=== PATIENT | female | born 1960 | race Caucasian/White ===

== ENCOUNTER 2017-06-18 23:54 | Observation (INO) ==
[2017-06-19] MEDS ORDERED: ZOFRAN IM ONE (01:41)
[2017-06-19] MEDS ORDERED: NS 1,000 ML IV ONE (02:11)
[2017-06-19 02:15] LABS: BASO% 0.2 % (0.0-0.8); EOS# 0.02 X1000 (0.0-0.7); EOS% 0.1 % (0.0-10.0); HEMATOCRIT 40.5 % (37.0-47.0); HEMOGLOBIN 14.1 g/dL (12.0-16.0); IMM GRAN# 0.35 X1000 (0.0-0.04); IMM GRAN% 1.6 % (0.0-0.5); LYMPH# 3.88 X1000 (1.2-3.4); LYMPH% 17.2 % (20.5-51.1); MANUAL DIFF NEEDED? NO; MCH 31.8 PG (27-31); MCHC 34.8 g/dL (33-37); MCV 91.2 FL (81-99); MONO# 1.07 X1000 (0.11-0.59); MONO% 4.7 % (1.7-9.3); NEUT% 76.2 % (42.2-75.2); PLT 421 X1000 (130-400); RBC 4.44 XMIL (4.2-5.4)
[2017-06-19 02:19] LABS: INR 0.97; PROTIME 10.2 Seconds (9.2-11.7)
[2017-06-19] MEDS ORDERED: FENTANYL ONE (02:31)
[2017-06-19] MEDS ORDERED: DIPRIVAN 1% ONE (02:32)
[2017-06-19] MEDS ORDERED: REGLAN ONE ×2 (02:53)
[2017-06-19] MEDS ORDERED: ZOFRAN ONE ×2 (02:54)
[2017-06-19] MEDS ORDERED: PEPCID ONE ×2 (02:55)
[2017-06-19] MEDS ORDERED: D5 1/2 NS + KCL 20 MEQ 1,000 ML ONE ×2 (03:43)
[2017-06-19] MEDS ORDERED: DILAUDID ONE (03:51)
[2017-06-19] MEDS ORDERED: QUELICIN (DOSE) ONE (03:58)
[2017-06-19] MEDS ORDERED: XYLOCAINE-MPF 2% ONE (03:58)
[2017-06-19] MEDS ORDERED: ZOFRAN IV PRN (04:24)
[2017-06-19] MEDS ORDERED: PHENERGAN IV PRN (04:24)
[2017-06-19] MEDS ORDERED: SODIUM CHLORIDE 0.9% INJ PRN (04:24)
[2017-06-19] MEDS ORDERED: HYDROCODONE/APAP 7.5-325/15 ML PO PRN (04:24)
[2017-06-19] MEDS: MORPHINE IV PRN ×2 (04:30→08:30)
[2017-06-19] MEDS ORDERED: D5 1/2 NS + KCL 20 MEQ 1,000 ML IV SCH ×2 (04:47→05:00)
[2017-06-19 07:32] VITALS: BP 120/66
--- NOTE | 2017-06-28 18:43 | PROVIDER DOCUMENTATION ---
This chart was entered by Ana Winters Scribe, acting as scribe for Chay Mercer MD. HPI-EENT General - General Chief Complaint: Post Op Complaint Stated Complaint: POST OP COMPLAINT Time Seen by Provider: 06/19/17 00:55 Source: patient Allergies/Adverse Reactions: Patient Allergies Allergy/AdvReac Type Severity Reaction Status Date / Time clindamycin AdvReac RASH Verified 06/19/17 01:41 Home Medications: Home Medication List Medication Instructions Recorded Confirmed Last Taken Type Atorvastatin Calcium [Lipitor] 20 mg PO DAILY 06/19/17 06/19/17 06/18/17 History Hydrocodone Bit/Acetaminophen 3 - 4 tsp PO Q4-6H PRN PRN #400 06/19/17 Unknown Rx [Hycet 7.5 mg-325 mg/15 ml Yvette] solution Promethazine [Phenergan] 25 mg PO Q4-6H PRN PRN #10 tablet 06/19/17 Unknown Rx - History of Present Illness-EENT General Nature of Presenting Problem: Patient is a 57 year old female who presents in the ED with complaints of post- operative bleeding. Patient states she had a tonsillectomy on Tuesday06/13/17 due to a cyst/lesion on her left tonsil, and states she is awaiting on the results of her tonsil biopsy. She also states she had a sudden onset of bleeding from the surgical site at approximately midnight, and states she tried holding ice chips in her mouth to slow the bleeding but it did not help. She reports she has not taken any aspirin or NSAIDs since approximately 06/03/17, and reports history of hypertension and melanoma. Denies other symptoms. EENT Location: reports: throat Quality of Pain: reports: none Severity: reports: moderate Onset/Duration: reports: abrupt, just prior to arrival, 1 hour ago Timing: reports: still present Prearrival Treatment: Initiated no prearrival treatment Associated Symptoms: reports: other (post-op bleeding) Other injuries?: denies: neck, head, back, other Locality of Occurance: Home Similar Symptoms Previously?: No Recently seen or treated by another doctor?: Yes (tonsillectomy on Tuesday) - Throat/Dental Throat/Dental Problem Symptoms: reports: other (post-tonsillectomy bleeding) Throat/Dental Problem Context: reports: other Recently seen a dentist or have an appointment?: No Review of Systems - Adult - REVIEW OF SYSTEMS - ADULT Constitutional: reports: no symptoms reported Eyes: reports: no symptoms reported Ears, Nose, Mouth & Throat: reports: see HPI, other (post-op bleeding) Cardiovascular: reports: no symptoms reported Respiratory: reports: no symptoms reported Gastrointestinal: reports: no symptoms reported Genitourinary: reports: no symptoms reported Musculoskeletal: reports: no symptoms reported Integumentary: reports: no symptoms reported Neurological: reports: no symptoms reported Psychiatric: reports: no symptoms reported Endocrine: reports: no symptoms reported Hematologic/Lymphatic: reports: no symptoms reported Allergic/Immunologic: reports: no symptoms reported All Other Systems: Reviewed and Negative Past History - Adult - PAST MEDICAL HISTORY-ADULT Review of Records: reports: Nursing Assessment Review, Medications Reviewed Major Childhood Illnesses: reports: denies history Cardiovascular: reports: HTN Respiratory: reports: denies history Gastrointestinal: reports: denies history Obstetrical/Gynecological: reports: denies history Genitourinary: reports: denies history Musculoskeletal: reports: denies history Neurological: reports: denies history Psychiatric: reports: denies history Endocrine/Immune: reports: denies history Other Conditions: reports: other cancer (melanoma) - PRIOR SURGERIES/PROCEDURES Surgical/Procedure History: reports: hysterectomy (partial), tonsillectomy, other (melanoma removal) - IMMUNIZATION STATUS Childhood Immunizations: See Nurse Assessment Flu Vaccine: See Nurse Assessment - FAMILY HISTORY Family History: reviewed, not pertinent - SOCIAL HISTORY Smoking: denies, non-smoker Substance Use: none/never Alcohol Use Frequency: 3-4 times a week Number of drinks per typical drinking period:: 2 drinks (couple glasses of wine at night) Living Situation: family Physical Exam- EENT - Physical Exam EENT Initial Vital Signs Reviewed: Yes General Appearance: alert, no apparent distress Eye Exam: bilateral eye: normal inspection, PERRL, EOMI Nasal Exam: normal inspection Throat Exam: other (left tonsillectomy site with active bleeding and moderate sized blood clot; right tonsillectomy site with sutures intact) Neck: full range of motion, supple Respiratory: chest non-tender, lungs clear, normal breath sounds, no pleuratic chest pain, no respiratory distress, no accessory muscle use Cardiovascular: regular rate, rhythm, no edema, no gallop, no JVD, no murmur Abdominal Exam: no organomegaly, no pulsatile mass Lymphatic: no adenopathy Back Exam: normal inspection Extremity: normal range of motion, non-tender Integumentary: normal color, normal turgor, warm/dry Neurologic: grossly normal, no motor/sensory deficits Psych/Mental Status: normal mood/affect, oriented x 3 Progress - PLAN OF CARE/RESULTS Progress/Plan/Lab Results: Orders Category Date Time Status Permit for Surgery NOW Care 06/19/17 02:35 Active CBC WITH ELECTRONIC DIFF [HEME] Stat Lab 06/19/17 01:35 Completed PROTIME WITH INR [COAG] Stat Lab 06/19/17 01:35 Completed PTT [COAG] Stat Lab 06/19/17 01:35 Completed 0.9% Sodium Chloride Inj [Ns] 1,000 ml Med 06/19/17 02:11 Discontinued IV 999 mls/hr Fentanyl Med 06/19/17 02:31 Discontinued 100 microgm .ROUTE .STK-MED ONE Ondansetron [Zofran] Med 06/19/17 01:41 Discontinued 8 mg IM NOW ONE Propofol [Diprivan 1%] Med 06/19/17 02:32 Discontinued 200 mg .ROUTE .STK-MED ONE Consent for Surgery Stat Oth 06/19/17 02:22 Ordered Result Diagrams: 06/19/17 01:35 - CONSULTS/PCP/HOSPITALIST Notification #1 *Consult/PCP/Hospitalist*: Dr. Elliott's RN Time Discussed: 01:10 Consult Disposition: other (will call Dr. Elliott and discuss patient and return call) #2 Consult: Dr. Elliott Time Discussed: 01:14 Consult Disposition: Will see in ED Departure - Departure Date of Disposition Decision: 06/19/17 Time of Disposition Decision: 08:40 DIAGNOSIS: Post-op bleeding Disposition: ADMITTED INPATIENT 09 Certified Medical Emergency: Emergent Condition: Stable - Critical Care Note This patient required my direct & personal management of CC.: No Attestation - Physician/ ALPHONSE Attestation Patient care was provided by Advanced Practice Provider:: No The physician spent face to face time with patient:: Yes Advanced Practice Provider documentation review:: Supervising physician onsite and consulted in the evaluation and care of this patient. The physician did have a face to face encounter with the patient. This chart was documented by the indicated scribe, (Ana Winters, Scribe) and accurately reflects the services I performed and decisions made by me, Chay Mercer MD, as attested by the provider's signature.
== END 2017-06-19 08:46 | disposition home or self-care (01) ==
LOC: ED 23:54 → 4N 06-19 03:18
PROVIDERS: ADMIT Specialist; ATTEND Specialist